=== PATIENT | male | born 1945 | race Caucasian/White ===

== ENCOUNTER → 2021-12-13 | Outpatient (CLI) | payer OTHER ==
--- NOTE | 2021-12-13 13:38 | Diagnostic Imaging Report ---
PROCEDURE: CT abdomen and pelvis without contrast. TECHNIQUE: Multiple contiguous axial images were obtained through the abdomen and pelvis without the use of intravenous contrast. Auto Exposure Controls were utilized during the CT exam to meet ALARA standards for radiation dose reduction. INDICATION: Cancer of the prostate. Compared with study 05/01/2015. I have no priors. FINDINGS: Heterogeneous prostamegaly indents the bladder space, unchanged. There is fullness of the right greater than left seminal vesicles unchanged. Bladder itself intrinsically unremarkable. There are extensive there are bilateral renal calculi greater right with multiple parenchymal and calyceal stones as well as calculi within the bilateral extrarenal pelves beyond the level of the ureteropelvic junctions. No ureteral stone found. No intraluminal bladder calculi today. There are degenerative changes throughout the spine but no suspicious lytic or sclerotic bone lesion. There is no abdominal pelvic mesenteric or retroperitoneal lymphadenopathy. Ileo-inguinal lymph node chains and pelvic sidewalls normal. The appendix unremarkable. There is noninflamed sigmoid diverticulosis. No perienteric or pericolonic edema. There are stones layering within the gallbladder lumen dependently. No secondary findings of cholecystitis. There is a cyst in the left hepatic lobe anteriorly chronic. The adrenals are negative. The pancreas unremarkable. The atherosclerotic aorta nonaneurysmal. IMPRESSION: 1. Bilateral nephrolithiasis, stones are now found within the extrarenal pelves bilaterally but no hydronephrosis or perinephric edema. No ureteral or bladder stone. 2. No findings of soft tissue or osseous metastasis. 3. Cholelithiasis. Dictated by: Dictated on workstation # [id number]
--- NOTE | 2021-12-13 15:56 | Diagnostic Imaging Report ---
INDICATION: Prostate CA. TECHNIQUE: 25 mCi tech 99m MDP was given IV. 2-1/2 hour delayed whole body imaging. FINDINGS: There is good uptake throughout the skeletal system. No focal areas of abnormal uptake are seen that would suggest metastatic disease. Mild uptake noted along the lower lumbar spine consistent with degenerative change. Also mild uptake within the medial aspect of both knees. IMPRESSION: 1. No findings are seen that would suggest metastatic disease. 2. Degenerative changes noted of the lumbosacral spine and knees. Dictated by: Dictated on workstation # [id number]
== END ==
LOC: CARD 11:30
PROVIDERS: ATTEND Urology
DX: C61 Malignant neoplasm of prostate (principal); N20.0 Calculus of kidney; K80.20 Calculus of gallbladder without cholecystitis without obstruction; M47.817 Spondylosis without myelopathy or radiculopathy, lumbosacral region; M17.0 Bilateral primary osteoarthritis of knee
CPT/HCPCS: 74176; 78306